=== PATIENT | female | born 1975 | race Caucasian/White ===

== ENCOUNTER → 2017-07-24 | Outpatient (CLI) | payer BC | LOC: M.RAD 08:33 | DX: Z12.31 Encounter for screening mammogram for malignant neoplasm of breast (principal) ==

== ENCOUNTER → 2017-07-30 | Outpatient (CLI) | payer BC | LOC: M.ULTRA 10:22 | DX: N63.20 Unspecified lump in the left breast, unspecified quadrant (principal) ==